=== PATIENT | female | born 1980 | race Caucasian/White ===

== ENCOUNTER 2016-10-04 01:30 | Inpatient (IN) | payer OTHER ==
[2016-10-04] MEDS ORDERED: TERBUTALINE SULFATE 1 MG/ML VIAL IV PRN (03:44)
[2016-10-04] MEDS ORDERED: OLIVE OIL 118 ML BTL MISC PRN (03:44)
[2016-10-04] MEDS ORDERED: LR 1,000 ML IV PRN (03:44)
[2016-10-04] MEDS ORDERED: OXYTOCIN/RINGERS LACTATE 1,000 ML IV PRN (03:44)
[2016-10-04] MEDS ORDERED: EPSOM SALT 454 GM TP PRN (03:44)
[2016-10-04 04:12] LABS: % IMMATURE GRANULYOCYTES 0.9 % (0.0-1.1); ABSOLUTE IMMATURE GRANULOCYTES 0.16 10^3/uL (0.00-0.10); ADD DIFF? NO; ADD MORPH? NO; ADD SCAN? NO; ATYPICAL LYMPHOCYTE FLAG 0 (0-99); FRAGMENT RBC FLAG 0 (0-99); HEMATOCRIT 38.2 % (38.0-47.0); HEMOGLOBIN 13.5 g/dL (12.6-16.3); LEFT SHIFT FLG 0 (0-99); LIPEMIA HEMOLYSIS FLAG 90 (0-99); MEAN CELL HEMOGLOBIN 32.1 pg (27.9-34.1); MEAN CELL HEMOGLOBIN CONCENTR. 35.3 g/dL (32.4-36.7); MEAN PLATELET VOLUME 10.5 fL (8.7-11.7); PLATELET CLUMPS FLAG 10 (0-99); PLATELET COUNT 150 10^3/uL (150-400)
[2016-10-04] MEDS ORDERED: fentaNYL 2MCG/ML/BUP 0.1% RTU 100 ML BAG EP ONE (04:18)
[2016-10-04] MEDS ORDERED: PHENYLEPHRINE HCL 100 MCG/ML SYR ONE (04:19)
[2016-10-04] MEDS ORDERED: fentaNYL 100 MCG/2 ML INJ ONE (04:19)
[2016-10-04] MEDS ORDERED: BUPIVACAINE 0.25% 30 ML SDV ONE (04:19)
[2016-10-04] MEDS ORDERED: LIDO/EPI 2% **for epidural** 20 ML SDV ONE (04:47)
[2016-10-04] MEDS ORDERED: PHENYLEPHRINE HCL 100 MCG/ML SYR IVP PRN (05:22)
[2016-10-04] MEDS ORDERED: NALOXONE HCL 0.4 MG/ML INJ IVP PRN (05:22)
[2016-10-04] MEDS ORDERED: ONDANSETRON 4 MG/2 ML VIAL IVP PRN (05:22)
[2016-10-04] MEDS ORDERED: fentaNYL 2MCG/ML/BUP 0.1% RTU 100 ML EP SCH (05:30)
[2016-10-04] MEDS ORDERED: LR 500 ML IV SCH (05:30)
[2016-10-04] MEDS ORDERED: LR 500 ML IV PRN (05:50)
[2016-10-04] MEDS ORDERED: OXYTOCIN/RINGERS LACTATE 500 ML IV SCH (06:00)
[2016-10-04] MEDS ORDERED: AMMONIA AROMATIC 1 EACH AMP IH ONE (06:11)
[2016-10-04] MEDS ORDERED: MISOPROSTOL 200 MCG TAB ONE (06:11)
[2016-10-04] MEDS ORDERED: LIDOCAINE 1% 300 MG/30 ML SDV ONE (06:12)
[2016-10-04] MEDS ORDERED: OXYTOCIN 10 UNIT/ML VIAL ONE (06:13)
--- NOTE | 2016-10-04 06:14 | GHP ---
[f rep st] PREOP HISTORY AND PHYSICAL DATE OF ADMISSION: 10/04/2016 ADMISSION DIAGNOSES: 1. Intrauterine at 40 and 5/7 weeks gestation. 2. Active labor. HISTORY OF PRESENT ILLNESS: The patient is a 35-year-old, 1, para 0, who is 40 and 5/7 week s gestation. Patient's estimated due date is 09/29/2016, dated by last menstrual period, consistent with first trimester ultrasound. She was seen earlier today in the office and her membranes were sw ept. She began having contractions increasing in frequency and intensity, and arrived to Labor and Delivery. She has been 1 to 2 cm dilated, was re-examined several hours later and had made slight c hange, but then her water broke and she has made rapid progress to 8 cm. She has requested and rece ived an epidural which has provided adequate pain relief. Patient is comfortable with epidural. Th e patient did have TB exposure in the first trimester and had negative testing. Remainder of her pr egnancy has been uncomplicated. PAST MEDICAL HISTORY: HSV type 1 orally. No history of genital outbreaks. History of depression. Has worked with a therapist. She has been on medications in the past, but is not currently on any medications. History of bleeding ulcer. MEDICATIONS: vitamins and iron. SURGICAL HISTORY: [place] teeth extraction. ALLERGIES: No known drug allergies. SOCIAL HISTORY: Patient is . She denies tobacco, alcohol, or drug use. FAMILY MEDICAL HISTORY: Noncontributory. AQUATICS LIFEGUARD HISTORY: Menarche age 16. Periods every 24 days, lasting 4 days. She is a 1, para 0. Her current has been uncomplicated. She initially had a low-lying placenta, which has resolved. She had TB exposure, but she was tested negative. The patient denies any history of abn ormal Pap smears or sexually transmitted diseases, with the exception of the oral HSV. REVIEW OF SYSTEMS: A 10-point review of systems is negative with the exception of the above pertine nt positives. There is positive movement. She denies any headaches, changes in vision, nause a, vomiting, fevers or chills and no right upper quadrant pain. PHYSICAL EXAM: VITAL SIGNS: Stable. GENERAL APPEARANCE: Alert and oriented x3. NEURO: Exam is unremarkable. NECK: Mobile and supple. HEART: Rate is regular, regular. LUNGS: Clear to auscul tation bilaterally. ABDOMEN: Gravid, nondistended, nontender. There is no organomegaly. EXTREMIT IES: Reveal no calf tenderness or edema. CERVICAL EXAM: Most recent cervical exam she is 8 cm dil ated, 90% effaced, and -1 station. heart tracing is category 1 and reactive. No deceleration s. Contractions have decreased since receiving her epidural. is in the vertex presentation. LABS: Blood type O positive, antibody screen negative. Rubella immune. GBS negative. HB sAg negative. HIV negative. Her 50 g glucose was 69. ASSESSMENT AND PLAN: A 35-year-old, 1, para 0, who is 40 and 5/7 weeks gestation who presen anatoly in active labor. She has received an epidural which she will be augmented with Pitocin if neede d and managed expectantly. /[id number]/MODL
--- NOTE | 2016-10-04 09:24 | OBPROG ---
OBG Labor Progress Note Assessment/Plan: Assessment: Plan: Subjective: patient has been very comfortable with epidural. AROM - large forebag. clear fluid noted. having occasional variable decelerations. overall status is reassuring. patients mom and sister have both needed c sections. discussed that she has a very narrow pelvis. will do all reasonable things to avoid c section unless necessary. Objective: 10/04/16 04:00 Patient ABO/Rh O POSITIVE 10/04/16 04:00 - SVE Dilation (cm): 9 Effacement (%): 100 Station: -1 Oxytocin Orders Assessment - Pre-Induction/Augmentation Assessment Gestational Age: 40 week(s) and 5 day(s) ICD10 Worksheet Patient Problems: Problems Problem Status Onset Delivery normal Acute
--- NOTE | 2016-10-04 09:45 | OBPROG ---
OBG Labor Progress Note Assessment/Plan: Assessment: Plan: 10/04/16 09:42 Subjective: patient is having a window of pain on her back. epidural bolus button pushed. IUPC and FECG placed due to having a difficult time monitoring pitocin at 6 mu. patient is complete. will let patient get comfortable and then see how she pushes. Objective: 10/04/16 04:00 Patient ABO/Rh O POSITIVE 10/04/16 04:00 - SVE Dilation (cm): 10 Effacement (%): 100 Station: -1 Oxytocin Orders Assessment - Pre-Induction/Augmentation Assessment Gestational Age: 40 week(s) and 5 day(s) ICD10 Worksheet Patient Problems: Problems Problem Status Onset First stage of labor Acute
[2016-10-04] MEDS ORDERED: SIMETHICONE 80 MG TAB CHEW PO PRN (11:52)
[2016-10-04] MEDS ORDERED: ACETAMINOPHEN 325 MG TAB PO PRN (11:52)
[2016-10-04] MEDS ORDERED: HYDROCORTISONE 0.5% CREAM TP PRN (11:52)
--- NOTE | 2016-10-04 11:56 | OBDEL ---
Info Type: Vaginal GBS+: No Indications for Delivery: Spontaneous Labor Vaginal Delivery - Labor and Delivery Onset of Contractions Date: 10/04/16 Onset of Contractions Time: 01:30 Onset of Contractions Type: Augmented Rupture of Membranes Date: 10/04/16 Rupture of Membranes Time: 08:15 Rupture of Membranes Type: Spontaneous Amniotic Fluid Color: Clear Dilation Complete Date: 10/04/16 Dilation Complete Time: 09:35 Placenta Delivery Date: 10/04/16 Placenta Delivery Time: 11:36 Total Hours of Labor: 10 Non-surgical Procedures: Amniotomy (of forebag) Laceration: 2nd Degree, Other (Specify) (left labial) Vaginal Sponge Count Correct: Yes Vaginal Needle Count Correct: Yes Vaginal Sweep Performed: No EBL: 300 Delivery Events: None - Medications Labor Augmentation/Induction Methods Used: Pitocin Labor Augmentation/Induction Indication: Other (Specify) (inadequate contractions) Data Neumann Delivery Date: 10/04/16 Delivery Time: 11:32 BETTE: 09/29/16 Gestational Age: 40 week(s) and 5 day(s) Sex of Infant: Male Score (1 Min): 9 Score (5 Min): 9 ICD10 Worksheet Patient Problems: Problems Problem Status Onset First stage of labor Acute
[2016-10-04] MEDS: IBUPROFEN 600 MG TAB PO PRN ×3 (12:10→23:31)
[2016-10-04] MEDS: HYDROCODONE/APAP 5/325 TAB PO PRN (20:04)
[2016-10-04] MEDS: DOCUSATE SODIUM 100 MG CAP PO PRN (20:04)
[2016-10-05] MEDS: HYDROCODONE/APAP 5/325 TAB PO PRN ×6 (00:14→23:00)
[2016-10-05] MEDS: IBUPROFEN 600 MG TAB PO PRN ×4 (05:37→23:41)
[2016-10-05] MEDS: DOCUSATE SODIUM 100 MG CAP PO PRN ×3 (09:58→23:41)
--- NOTE | 2016-10-05 11:50 | OBPP ---
Progress Note Assessment/Plan: Assessment: ppd# 1 s/p breast feeding uncomplicated post course Plan: routine post care 10/05/16 11:48 Subjective: patient is doing well. baby doing some cluster feeding but otherwise breast feeding is going well. denies headache and changes in vision. voiding without difficulty. normal lochia. Objective: 10/04/16 04:00 Patient ABO/Rh O POSITIVE 10/04/16 04:00 Temp Pulse Resp BP Pulse Ox 36.9 C 91 17 104/58 L 93 10/05/16 08:10 10/05/16 08:10 10/05/16 08:10 10/05/16 08:10 10/05/16 08:10 Uterine Position/Fundal Height: Umbilicus -2 Physical Exam - Physical Exam General Appearance: WD/WN, alert, no apparent distress Respiratory: chest non-tender, lungs clear, normal breath sounds Cardiac/Chest: normal peripheral pulses, regular rate, rhythm Abdomen: normal bowel sounds, hypoactive bowel sounds, non-tender Extremities: normal range of motion, non-tender, normal inspection, normal capillary refill Skin: normal color, warm/dry Neuro/Psych: no motor/sensory deficits, alert, normal mood/affect, oriented x 3
--- NOTE | 2016-10-05 11:55 | OBGCSDC ---
<Violet Stroud - Last Filed: 10/05/16 11:52> General Delivery Information - General Info : 1 Para: 1 Delivery Physician/CNM: Violet Stroud Labs: Patient ABO/Rh O POSITIVE 10/04/16 04:00 Hct 38.2 % (38.0-47.0) 10/04/16 04:00 Vaginal - Diagnosis Labor: Augmented Rupture of Membranes Type: Spontaneous Amniotic Fluid Color: Clear Laceration: 2nd Degree, Other (Specify) (left labial) Delivery Events: None - Operations/Procedures Non-surgical Procedures: Amniotomy (of forebag) L&D Analgesia/Anesthesia Type: Epidural - Hospital Course Antepartum: uncomplicated . negative verfiy. membranes swept in the office. progressed into labor Intrapartum: arrived 1-2 cm. progressed into active labor. DIANNE. arom. pain window in back. complete. bolused epidural. labored down. pushed well. : breast feeding. normal lochia. denies headache and changes in vision. - Delivery Non-surgical Procedures: Amniotomy (of forebag) L&D Analgesia/Anesthesia Type: Epidural Data Neumann Delivery Date: 10/04/16 Delivery Time: 11:32 BETTE: 09/29/16 Gestational Age: 40 week(s) and 6 day(s) Sex of : Male Weight (gm): 2968 g Score (1 Min): 9 Score (5 Min): 9 Discharge Information - Discharge Information Condition: Good Instruction/Follow Up: Four Weeks, Six Weeks <Luz Edward - Last Filed: 10/06/16 09:14> General Delivery Information - General Info Labs: Patient ABO/Rh O POSITIVE 10/04/16 04:00 Hct 38.2 % (38.0-47.0) 10/04/16 04:00 Vaginal - Hospital Course : Nipples sore - using lanolin. Perineum sore and using norco occasionally. Discharge Information - Discharge Information Discharge Medications: Hydrocodone, Ibuprofen, Vitamins Discharge Physician/CNM: Luz Edward
[2016-10-05 19:40] VITALS: BP 95/62; PULSE 78; RESP 16; TEMP 97.2; O2SAT 98
[2016-10-06] MEDS: IBUPROFEN 600 MG TAB PO PRN ×2 (05:47→12:08)
--- NOTE | 2016-10-06 09:12 | OBPP ---
Progress Note Assessment/Plan: Assessment: PPD 2 s/p doing well Plan: D/C home today 10/06/16 09:10 Subjective: Doing ok - was really sore last noc. Has been using [place] but not since middle of night. Using ibu. Bld is moderate. BF ok but nipples getting sore. Objective: 10/04/16 04:00 Patient ABO/Rh O POSITIVE 10/04/16 04:00 Temp Pulse Resp BP Pulse Ox 36.2 C 78 16 95/62 L 98 10/05/16 19:38 10/05/16 19:38 10/05/16 19:38 10/05/16 19:38 10/05/16 19:38 Uterine Position/Fundal Height: Umbilicus -1 Uterine Tone: Firm Physical Exam - Physical Exam General Appearance: WD/WN Abdomen: non-tender, soft, other (normal lochia) Extremities: non-tender, pedal edema (minimal) Skin: warm/dry Neuro/Psych: normal mood/affect
[2016-10-06] MEDS: DOCUSATE SODIUM 100 MG CAP PO PRN (09:34)
[2016-10-06] MEDS: HYDROCODONE/APAP 5/325 TAB PO PRN (12:09)
== END 2016-10-06 14:40 | disposition home or self-care (01) | DRG 775 ==
LOC: OBSVTOIN 01:30 → FLD 01:30 → FOB 15:10
PROVIDERS: ADMIT Obstetrics & Gynecology; ATTEND Obstetrics & Gynecology
DX: O48.0 Post-term pregnancy (principal); O70.1 Second degree perineal laceration during delivery; Z37.0 Single live birth; Z3A.40 40 weeks gestation of pregnancy
CPT/HCPCS: J2370; J2590; J3010; J3105